=== PATIENT | male | born 1965 | race African-American/Black ===

== ENCOUNTER → 2017-02-17 | Outpatient (CLI) | payer OTHER | LOC: COL.RAD 09:03 | DX: M79.605 Pain in left leg (principal) | CPT/HCPCS: A9503 ==

== ENCOUNTER → 2018-02-21 | Outpatient (CLI) | payer OTHER | LOC: COL.PUL 08:00 | DX: J44.9 Chronic obstructive pulmonary disease, unspecified (principal) ==

== ENCOUNTER → 2019-09-28 | Outpatient (CLI) | payer OTHER | LOC: COL.RAD 10:03 | DX: M75.111 Incomplete rotator cuff tear or rupture of right shoulder, not specified as traumatic (principal); S46.911A Strain of unspecified muscle, fascia and tendon at shoulder and upper arm level, right arm, initial encounter ==